=== PATIENT | male | born 1935 | race African-American/Black ===

== ENCOUNTER 2017-03-30 11:25 | Inpatient (IN) | payer MEDICARE, OTHER ==
[~2017-03-30] VITALS: Ht 175.3 cm; Wt 95.5 kg
[~2017-03-30 11:25] MED LIST: ALLO100T PO; AMLO10TA4 PO; AMOXICILLIN PO; ASPI-1159 PO; CARV12.545 PO; CLOP75TA2 PO; HYDR-4005 PO; INSU10VI5 SQ; LOSA100T14 PO; SITA50TA3 PO; TRIA1CAP6 PO; [UNRECOGNIZED DRUG - OTHER] PO
[2017-03-30] MEDS ORDERED: CRIZ250C PO (11:55)
[2017-03-30 15:12] LABS: BASOPHILS % 0.9 % (0.0-2.0); EOSINOPHILS % 1.7 % (0.0-5.0); HEMOGLOBIN. 11.1 g/dL (14.0-18.0); LYMPHOCYTES % 23.9 % (20.0-50.0); MEAN CORPUSCULAR HEMOGLOBIN 23.7 pg (28.0-32.0); MEAN CORPUSCULAR VOLUME 74.9 fL (80.0-94.0); MEAN PLATELET VOLUME 9.3 fl (7.4-10.4); MONOCYTES % 8.2 % (2.0-8.0); NEUTROPHILS % 65.3 % (40.0-76.0); PLATELET 230 x1000/uL (130-400); RED BLOOD CELL COUNT 4.67 mill/uL (4.7-6.1)
[2017-03-30 15:14] LABS: BG BASE EXCESS -2.8 mmol/L (-2.0-2.0); BG CARBOXYHEMOGLOBIN 0.8 % (0.5-1.5); BG DEOXYHEMOGLOBIN 5.7 % (0.0-5.0); BG HCO3 ACT 21.8 mmol/L (22.0-26.0); BG METHEMOGLOBIN 0.2 % (0.0-1.5); BG OXYGEN SATURATION 94.2 % (92.0-98.5); BG OXYHEMOGLOBIN 93.3 % (94.0-97.0); BG PCO2 37.1 mmHg (35.0-45.0); BG PH 7.386 (7.350-7.450); BG PO2 71.4 mmHg (75.0-100.0); BG SAMPLE SITE RIGHT RADIAL; BG TOTAL HEMOGLOBIN 12.4 g/dL (12.0-18.0); BG VENT MODE ROOM AIR
[2017-03-30 15:20] LABS: INR 1.1
[2017-03-30 15:23] LABS: AMMONIA 23 uMol/L (<32)
[2017-03-30 15:24] LABS: CARBON DIOXIDE 27 mEq/L (21-32); CHLORIDE 104 mEq/L (98-107); ETHANOL BLOOD < 10 mg/dL
[2017-03-30 15:30] LABS: TROPONIN I < 0.02 ng/mL (0.00-0.04)
[2017-03-30 15:39] LABS: GLUCOSE URINE NEGATIVE (NEGATIVE); KETONES URINE NEGATIVE (NEGATIVE); LEUKOCYTE ESTERASE URINE NEGATIVE (NEGATIVE); NITRITE URINE NEGATIVE (NEGATIVE); OCCULT BLOOD URINE NEGATIVE (NEGATIVE); PH URINE 5.5 (4.5-8.0); PROTEIN URINE 1+ (NEGATIVE); SPECIFIC GRAVITY URINE 1.007 (1.005-1.030)
[2017-03-30 15:44] LABS: CLARITY URINE CLEAR (CLEAR); COLOR URINE YELLOW (YELLOW)
[2017-03-30 16:04] LABS: *AMPHETAMINES SCREEN URINE NEGATIVE (NEGATIVE); *BARBITURATES SCREEN URINE NEGATIVE (NEGATIVE); *BENZODIAZEPINES SCREEN URINE NEGATIVE (NEGATIVE); *COCAINE SCREEN URINE NEGATIVE (NEGATIVE); CANNABINOID URINE SCREEN NEGATIVE (NEGATIVE); METHADONE URINE SCREEN NEGATIVE (NEGATIVE); OPIATES URINE SCREEN NEGATIVE (NEGATIVE); PHENCYCLIDINE URINE SCREEN NEGATIVE (NEGATIVE)
[2017-03-30] MEDS ORDERED: CEFTRIAXONE 1 G PREMIX 50 ML IV ONE (16:45)
[2017-03-30] MEDS ORDERED: AZITHROMYCIN 500 MG in DEXT 5% WATER 250 ML IV SCH (16:45)
[2017-03-30] MEDS ORDERED: AMLODIPINE 5MG TABLET PO NR (19:15)
[2017-03-30 20:02] VITALS: BP 187/70
[2017-03-30] MEDS ORDERED: INSU3INS6 SUBCUT (20:44)
[2017-03-30] MEDS ORDERED: LACTULOSE 20G/30ML UDC PO PRN (21:00)
[2017-03-30] MEDS ORDERED: CEFTRIAXONE SODIUM 1 G/VIAL IM ONE (21:00)
[2017-03-30] MEDS ORDERED: ZOLPIDEM TARTRATE 5MG TABLET PO PRN (21:00)
[2017-03-30] MEDS ORDERED: DEXTROSE 50% WATER 50ML SYRINGE IV PRN (21:00)
[2017-03-30] MEDS ORDERED: ACETAMINOPHEN 325MG TABLET PO PRN (21:00)
[2017-03-30] MEDS ORDERED: [UNRECOGNIZED DRUG - OTHER] PO (21:25)
[2017-03-30] MEDS ORDERED: HYDROCODONE/APAP 7.5/325MG 1 TAB TABLET PO PRN (21:30)
[2017-03-30] MEDS: BLOOD SUGAR DIAGNOSTIC STRIP TEST SCH (22:15)
[2017-03-30] MEDS: INSULIN LISPRO 100 UNITS/ML SUBCUT SCH (22:15)
[2017-03-30] MEDS: ALLOPURINOL 100 MG TABLET PO SCH (22:30)
[2017-03-30] MEDS: CARVEDILOL 12.5MG TABLET PO SCH (22:30)
[2017-03-30] MEDS: CLOPIDOGREL 75MG TABLET PO SCH (22:30)
[2017-03-30] MEDS: AMLODIPINE 10MG TABLET PO SCH (22:30)
[2017-03-31] VITALS: BP_SYST 127; BP_SYST 133; BP_DIAS 62; BP_DIAS 68
[2017-03-31 04:00] VITALS: BP 133/68
[2017-03-31] MEDS: INSULIN LISPRO 100 UNITS/ML SUBCUT SCH ×3 (06:41→20:23)
[2017-03-31] MEDS: BLOOD SUGAR DIAGNOSTIC STRIP TEST SCH ×3 (06:41→20:22)
[2017-03-31 06:53] LABS: HEMOGLOBIN 10.6 g/dL (14.0-18.0); MEAN CORPUSCULAR HEMOGLOBIN 23.5 pg (28.0-32.0); MEAN CORPUSCULAR VOLUME 75.1 fL (80.0-94.0); PLATELET 238 x1000/uL (130-400); RED BLOOD CELL COUNT 4.52 mill/uL (4.7-6.1)
[2017-03-31 08:00] VITALS: BP 147/54
[2017-03-31 08:18] LABS: CARBON DIOXIDE 29 mEq/L (21-32); CHLORIDE 105 mEq/L (98-107); HDL CHOLESTEROL 22 mg/dL (40-59); LDL CHOLESTEROL 65 mg/dL (5-100)
[2017-03-31] MEDS: CARVEDILOL 12.5MG TABLET PO SCH ×2 (09:00→20:23)
[2017-03-31] MEDS ORDERED: TRIAMTERENE/HYDROCHLOROTHIAZIDE 37.5/25MG CAPSULE PO SCH (09:00)
[2017-03-31] MEDS: AMLODIPINE 10MG TABLET PO SCH (10:29)
[2017-03-31] MEDS: CLOPIDOGREL 75MG TABLET PO SCH (10:29)
[2017-03-31] MEDS: ASPIRIN 81MG EC TABLET PO SCH (10:29)
[2017-03-31] MEDS: XALKORI 250 MG PO SCH ×2 (10:29→17:11)
[2017-03-31] MEDS: ALLOPURINOL 100 MG TABLET PO SCH (10:29)
[2017-03-31] MEDS: CEFTRIAXONE 1 G PREMIX 50 ML IV SCH (10:45)
[2017-03-31 12:00] VITALS: BP 163/47
[2017-03-31] MEDS: LOSARTAN POTASSIUM 100 MG TABLET PO SCH (14:13)
[2017-03-31 16:00] VITALS: BP 161/44
[2017-03-31 20:00] VITALS: BP 139/65
[2017-04-01] VITALS: BP 137/62
[2017-04-01 04:00] VITALS: BP 150/79
[2017-04-01] MEDS: BLOOD SUGAR DIAGNOSTIC STRIP TEST SCH ×4 (06:34→20:26)
[2017-04-01] MEDS: INSULIN LISPRO 100 UNITS/ML SUBCUT SCH ×4 (07:50→20:27)
[2017-04-01 08:00] VITALS: BP 158/50
[2017-04-01] MEDS: CLOPIDOGREL 75MG TABLET PO SCH (08:28)
[2017-04-01] MEDS: XALKORI 250 MG PO SCH ×2 (08:28→18:04)
[2017-04-01] MEDS: ALLOPURINOL 100 MG TABLET PO SCH (08:29)
[2017-04-01] MEDS: AMLODIPINE 10MG TABLET PO SCH (08:29)
[2017-04-01] MEDS: LOSARTAN POTASSIUM 100 MG TABLET PO SCH (08:29)
[2017-04-01] MEDS: CARVEDILOL 12.5MG TABLET PO SCH ×2 (08:29→20:26)
[2017-04-01] MEDS: ASPIRIN 81MG EC TABLET PO SCH (08:32)
[2017-04-01] MEDS: ENOXAPARIN 30MG/0.3ML SYR SUBCUT SCH (08:32)
[2017-04-01] MEDS: CEFTRIAXONE 1 G PREMIX 50 ML IV SCH (09:24)
[2017-04-01 12:10] VITALS: BP 162/48
[2017-04-01] MEDS: TRIAMTERENE/HYDROCHLOROTHIAZIDE 37.5/25MG CAPSULE PO SCH (12:31)
[2017-04-01 16:00] VITALS: BP 165/54
[2017-04-01 20:00] VITALS: BP 151/63
[2017-04-02] VITALS (7 sets, daily range): BP systolic 132–181; BP diastolic 50–64
[2017-04-02] MEDS: BLOOD SUGAR DIAGNOSTIC STRIP TEST SCH ×4 (06:40→20:50)
[2017-04-02 06:58] LABS: BASOPHILS % 1.1 % (0.0-2.0); EOSINOPHILS % 2.1 % (0.0-5.0); HEMOGLOBIN. 11.5 g/dL (14.0-18.0); LYMPHOCYTES % 30.5 % (20.0-50.0); MEAN CORPUSCULAR HEMOGLOBIN 23.4 pg (28.0-32.0); MEAN PLATELET VOLUME 10.1 fl (7.4-10.4); MONOCYTES % 10.1 % (2.0-8.0); NEUTROPHILS % 56.2 % (40.0-76.0); PLATELET 235 x1000/uL (130-400); RED BLOOD CELL COUNT 4.93 mill/uL (4.7-6.1); RED CELL DISTRIBUTION WIDTH 14.8 % (11.6-14.6)
[2017-04-02] MEDS: INSULIN LISPRO 100 UNITS/ML SUBCUT SCH ×4 (07:50→20:50)
[2017-04-02] MEDS: CARVEDILOL 12.5MG TABLET PO SCH ×2 (09:00→20:48)
[2017-04-02] MEDS: ENOXAPARIN 30MG/0.3ML SYR SUBCUT SCH (09:56)
[2017-04-02] MEDS: ALLOPURINOL 100 MG TABLET PO SCH (09:56)
[2017-04-02] MEDS: LOSARTAN POTASSIUM 100 MG TABLET PO SCH (09:57)
[2017-04-02] MEDS: CLOPIDOGREL 75MG TABLET PO SCH (09:57)
[2017-04-02] MEDS: TRIAMTERENE/HYDROCHLOROTHIAZIDE 37.5/25MG CAPSULE PO SCH (09:57)
[2017-04-02] MEDS: ASPIRIN 81MG EC TABLET PO SCH (09:57)
[2017-04-02] MEDS: AMLODIPINE 10MG TABLET PO SCH (09:57)
[2017-04-02] MEDS: XALKORI 250 MG PO SCH ×2 (09:58→18:19)
[2017-04-02] MEDS: CEFTRIAXONE 1 G PREMIX 50 ML IV SCH (12:11)
[2017-04-02 21:17] LABS: T4 FREE 0.88 ng/dL (0.76-1.46)
[2017-04-02 21:43] LABS: FOLIC ACID (FOLATE) SERUM 16.1 ng/mL (>5.38)
[2017-04-03 00:14] VITALS: BP 105/40
[2017-04-03 04:38] VITALS: BP 135/49
[2017-04-03] MEDS: BLOOD SUGAR DIAGNOSTIC STRIP TEST SCH ×3 (06:40→12:09)
[2017-04-03 08:00] VITALS: BP 161/50
[2017-04-03] MEDS: CLOPIDOGREL 75MG TABLET PO SCH (09:19)
[2017-04-03] MEDS: ASPIRIN 81MG EC TABLET PO SCH (09:20)
[2017-04-03] MEDS: TRIAMTERENE/HYDROCHLOROTHIAZIDE 37.5/25MG CAPSULE PO SCH (09:20)
[2017-04-03] MEDS: AMLODIPINE 10MG TABLET PO SCH (09:20)
[2017-04-03] MEDS: ALLOPURINOL 100 MG TABLET PO SCH (09:20)
[2017-04-03] MEDS: LOSARTAN POTASSIUM 100 MG TABLET PO SCH (09:20)
[2017-04-03] MEDS: CARVEDILOL 12.5MG TABLET PO SCH (09:21)
[2017-04-03] MEDS: ENOXAPARIN 30MG/0.3ML SYR SUBCUT SCH (09:22)
[2017-04-03] MEDS: INSULIN LISPRO 100 UNITS/ML SUBCUT SCH ×2 (09:31→13:19)
[2017-04-03] MEDS: XALKORI 250 MG PO SCH (11:36)
[2017-04-03] MEDS: CEFTRIAXONE 1 G PREMIX 50 ML IV SCH (11:36)
[2017-04-03 16:00] VITALS: BP 140/46
[2017-04-03 17:12] VITALS: BP 135/72
[2017-04-03] MEDS ORDERED: HYDROCODONE/APAP 7.5/325MG 1 TAB TABLET PO PRN (17:21)
== END 2017-04-03 17:40 | disposition home or self-care (01) | DRG 69 ==
LOC: ER 13:08 → 6WST 16:57 → EDBEDREQ 16:59 → ENRESERV 18:29
PROVIDERS: ADMIT Specialist; ATTEND Specialist
DX: G45.9 Transient cerebral ischemic attack, unspecified (principal); C34.90 Malignant neoplasm of unspecified part of unspecified bronchus or lung; E44.0 Moderate protein-calorie malnutrition; C78.00 Secondary malignant neoplasm of unspecified lung; I12.9 Hypertensive chronic kidney disease with stage 1 through stage 4 chronic kidney disease, or unspecified chronic kidney disease; M50.30 Other cervical disc degeneration, unspecified cervical region; R00.1 Bradycardia, unspecified; N18.9 Chronic kidney disease, unspecified; C61 Malignant neoplasm of prostate; E11.22 Type 2 diabetes mellitus with diabetic chronic kidney disease; E78.00 Pure hypercholesterolemia, unspecified; E78.5 Hyperlipidemia, unspecified; I13.10 Hypertensive heart and chronic kidney disease without heart failure, with stage 1 through stage 4 chronic kidney disease, or unspecified chronic kidney disease; I25.10 Atherosclerotic heart disease of native coronary artery without angina pectoris; I65.22 Occlusion and stenosis of left carotid artery; M10.9 Gout, unspecified; Z79.4 Long term (current) use of insulin; Z82.49 Family history of ischemic heart disease and other diseases of the circulatory system; Z85.118 Personal history of other malignant neoplasm of bronchus and lung; Z85.46 Personal history of malignant neoplasm of prostate; Z86.73 Personal history of transient ischemic attack (TIA), and cerebral infarction without residual deficits; Z87.891 Personal history of nicotine dependence; Z90.79 Acquired absence of other genital organ(s); Z95.5 Presence of coronary angioplasty implant and graft; Z88.2 Allergy status to sulfonamides; Z88.6 Allergy status to analgesic agent; Z91.041 Radiographic dye allergy status; Z68.31 Body mass index [BMI] 31.0-31.9, adult; Z79.84 Long term (current) use of oral hypoglycemic drugs
CPT/HCPCS: 36415; 36600; 70450; 70544; 70547; 70551; 71010; 71250; 80048; 80053; 80061; 80305; 81001; 82140; 82375; 82607; 82746; 82805; 82962; 83036; 83605; 83880; 84439; 84443; 84481; 84484; 85025; 85027; 85610; 87040; 92610; 93005; 93880; 96365; 96366; 96367; 97110; 97116; 97162; 97166; 99285; G0482; J0456; J0696; J1650; J1815; J7040; J7060

== ENCOUNTER 2017-06-19 16:55 | Inpatient (IN) | payer MEDICARE, OTHER ==
[~2017-06-19] VITALS: Ht 172.7 cm; Wt 79.4 kg
[~2017-06-19 16:55] MED LIST changes: -AMOXICILLIN PO; +CLOP75TA16 PO; -CLOP75TA2 PO; +CRIZ250C PO; -INSU10VI5 SQ; +INSU3INS6 SUBCUT; -SITA50TA3 PO
[2017-06-19 18:40] LABS: BASOPHILS % 1.1 % (0.0-2.0); EOSINOPHILS % 2.5 % (0.0-5.0); HEMATOCRIT. 35.8 % (42.0-52.0); HEMOGLOBIN. 11.5 g/dL (14.0-18.0); LYMPHOCYTES % 30.5 % (20.0-50.0); MEAN CORPUSCULAR HEMOGLOBIN 23.5 pg (28.0-32.0); MEAN CORPUSCULAR VOLUME 73.2 fL (80.0-94.0); MEAN PLATELET VOLUME 10.1 fl (7.4-10.4); NEUTROPHILS % 56.9 % (40.0-76.0); PLATELET 188 x1000/uL (130-400); RED BLOOD CELL COUNT 4.89 mill/uL (4.7-6.1); RED CELL DISTRIBUTION WIDTH 14.2 % (11.6-14.6)
[2017-06-19 18:49] LABS: CHLORIDE 103 mEq/L (98-107)
[2017-06-19 18:50] LABS: INR 1.1; PROTHROMBIN TIME 11.1 sec (9.4-11.6)
[2017-06-19 18:53] LABS: CARBON DIOXIDE 28 mEq/L (21-32)
[2017-06-19 18:58] LABS: TROPONIN I < 0.02 ng/mL (0.00-0.04)
[2017-06-19] MEDS ORDERED: ASPIRIN 325MG EC TABLET PO ONE (19:15)
[2017-06-19 21:25] VITALS: BP 169/54
[2017-06-19] MEDS ORDERED: ERGO2000 PO (22:22)
[2017-06-19 22:37] VITALS: BP 169/54
[2017-06-20] MEDS ORDERED: DEXTROSE 50% WATER 50ML SYRINGE IV PRN
[2017-06-20] MEDS ORDERED: ACETAMINOPHEN 325MG TABLET PO PRN
[2017-06-20 00:27] VITALS: BP 158/53
[2017-06-20] MEDS ORDERED: NON FORMULARY PATIENT HOME MED EA XX SCH (00:45)
[2017-06-20 04:30] VITALS: BP 172/56
[2017-06-20] MEDS ORDERED: PNEUMOCOCCAL 23-VAL P-SAC VAC 0.5 ML IM ONE (06:00)
[2017-06-20] MEDS ORDERED: INFLUENZA VIRUS VACCINE 0.5ML SYR IM ONE (07:00)
[2017-06-20] MEDS: BLOOD SUGAR DIAGNOSTIC STRIP TEST SCH ×4 (07:20→21:21)
[2017-06-20 07:24] LABS: CARBON DIOXIDE 28 mEq/L (21-32); CHLORIDE 106 mEq/L (98-107)
[2017-06-20 07:28] LABS: CREATINE KINASE 113 IU/L (39-308); CREATINE KINASE MB FRACTION 1.2 ng/mL (0.5-3.6); HDL CHOLESTEROL 24 mg/dL (40-59); LDL CHOLESTEROL 62 mg/dL (5-100); TROPONIN I < 0.02 ng/mL (0.00-0.04)
[2017-06-20] MEDS: INSULIN LISPRO 100 UNITS/ML SUBCUT SCH ×4 (08:00→21:24)
[2017-06-20 08:20] VITALS: BP 165/63
[2017-06-20] MEDS: ASPIRIN 81MG EC TABLET PO SCH (09:45)
[2017-06-20] MEDS: TRIAMTERENE/HYDROCHLOROTHIAZIDE 37.5/25MG CAPSULE PO SCH (09:45)
[2017-06-20] MEDS: ALLOPURINOL 100 MG TABLET PO SCH (09:45)
[2017-06-20] MEDS: CLOPIDOGREL 75MG TABLET PO SCH (09:45)
[2017-06-20] MEDS: AMLODIPINE 10MG TABLET PO SCH (09:45)
[2017-06-20] MEDS: CARVEDILOL 12.5MG TABLET PO SCH ×2 (09:46→21:21)
[2017-06-20] MEDS: LOSARTAN POTASSIUM 100 MG TABLET PO SCH (09:46)
[2017-06-20 10:42] LABS: CLARITY URINE CLEAR (CLEAR); COLOR URINE YELLOW (YELLOW); GLUCOSE URINE NEGATIVE (NEGATIVE); KETONES URINE NEGATIVE (NEGATIVE); LEUKOCYTE ESTERASE URINE NEGATIVE (NEGATIVE); NITRITE URINE NEGATIVE (NEGATIVE); OCCULT BLOOD URINE NEGATIVE (NEGATIVE); PH URINE 6.5 (4.5-8.0); PROTEIN URINE 2+ (NEGATIVE); SPECIFIC GRAVITY URINE 1.011 (1.005-1.030); UROBILINOGEN URINE 0.2 E.U./dL (0.2-1.0)
[2017-06-20 12:05] VITALS: BP 156/55
[2017-06-20] MEDS: NITROGLYCERIN OINT 1GM/INCH UDPKT TD SCH ×2 (13:15→21:20)
[2017-06-20] MEDS: SODIUM CHLORIDE 0.45% 1,000 ML IV SCH ×2 (13:26→23:45)
[2017-06-20] MEDS ORDERED: ENOXAPARIN 80MG/0.8ML SYR SUBCUT SCH (14:00)
[2017-06-20 16:39] LABS: CREATINE KINASE 103 IU/L (39-308); CREATINE KINASE MB FRACTION 1.1 ng/mL (0.5-3.6); TROPONIN I < 0.02 ng/mL (0.00-0.04)
[2017-06-20 16:55] VITALS: BP 157/63
[2017-06-20 20:00] VITALS: BP 170/67
[2017-06-20] MEDS: DOCUSATE SODIUM 250MG CAPSULE PO SCH (21:21)
[2017-06-20] MEDS: INSULIN DETEMIR UD 100 UNITS/ML SYR SUBCUT SCH (21:25)
[2017-06-21] VITALS (7 sets, daily range): BP systolic 132–167; BP diastolic 56–70
[2017-06-21] MEDS: NITROGLYCERIN OINT 1GM/INCH UDPKT TD SCH ×3 (05:02→21:25)
[2017-06-21] MEDS: BLOOD SUGAR DIAGNOSTIC STRIP TEST SCH ×4 (06:37→21:25)
[2017-06-21 07:32] LABS: BASOPHILS % 1.8 % (0.0-2.0); EOSINOPHILS % 3.2 % (0.0-5.0); HEMOGLOBIN. 11.5 g/dL (14.0-18.0); LYMPHOCYTES % 29.9 % (20.0-50.0); MEAN CORPUSCULAR HEMOGLOBIN 22.9 pg (28.0-32.0); MEAN CORPUSCULAR VOLUME 73.8 fL (80.0-94.0); MEAN PLATELET VOLUME 9.9 fl (7.4-10.4); MONOCYTES % 10.1 % (2.0-8.0); PLATELET 182 x1000/uL (130-400); RED BLOOD CELL COUNT 5.02 mill/uL (4.7-6.1); RED CELL DISTRIBUTION WIDTH 14.5 % (11.6-14.6)
[2017-06-21] MEDS: INSULIN LISPRO 100 UNITS/ML SUBCUT SCH ×4 (07:50→21:26)
[2017-06-21 08:43] LABS: CARBON DIOXIDE 27 mEq/L (21-32); CHLORIDE 104 mEq/L (98-107); TROPONIN I < 0.02 ng/mL (0.00-0.04)
[2017-06-21] MEDS: TRIAMTERENE/HYDROCHLOROTHIAZIDE 37.5/25MG CAPSULE PO SCH (09:00)
[2017-06-21] MEDS: AMLODIPINE 10MG TABLET PO SCH (09:00)
[2017-06-21] MEDS: CARVEDILOL 12.5MG TABLET PO SCH ×2 (09:00→21:25)
[2017-06-21] MEDS: ALLOPURINOL 100 MG TABLET PO SCH ×2 (09:00→18:23)
[2017-06-21] MEDS: CLOPIDOGREL 75MG TABLET PO SCH ×2 (09:00→18:23)
[2017-06-21] MEDS: LOSARTAN POTASSIUM 100 MG TABLET PO SCH (09:00)
[2017-06-21] MEDS: ASPIRIN 81MG EC TABLET PO SCH (09:00)
[2017-06-21] MEDS: SODIUM CHLORIDE 0.45% 1,000 ML IV SCH ×2 (12:15→23:43)
[2017-06-21] MEDS ORDERED: NITROGLYCERIN 50MCG/ML 10ML VIAL (CATH LAB) IV ONE (12:25)
[2017-06-21] MEDS ORDERED: HEPARIN SODIUM 1,000 UNIT/1ML VIAL IV ONE (12:25)
[2017-06-21] MEDS ORDERED: NICARDIPINE 100MCG/ML 10ML VIAL (CATH LAB) IV ONE (12:25)
[2017-06-21] MEDS: ERGOCALCIFEROL 50000UNITS CAPSULE PO SCH ×2 (12:52→18:23)
[2017-06-21] MEDS ORDERED: DIPHENHYDRAMINE 50MG/ML VIAL ONE (13:47)
[2017-06-21] MEDS ORDERED: HYDROCORTISONE SOD SUCCINATE 250 MG/2 ML VIAL ONE (13:47)
[2017-06-21] MEDS ORDERED: FAMOTIDINE 20MG/2ML VIAL IV ONE (13:47)
[2017-06-21] MEDS ORDERED: IODIXANOL 320MG/ML 100 ML BOTTLE IV ONE (13:58)
[2017-06-21] MEDS ORDERED: LIDOCAINE HCL 1% 20ML VIAL (Pyxis) INJ ONE (13:58)
[2017-06-21] MEDS ORDERED: MIDAZOLAM HCL 2 MG/2 ML VIAL ONE (13:58)
[2017-06-21] MEDS ORDERED: FENTANYL CITRATE/PF 50MCG/ML 2ML VIAL ONE (13:59)
[2017-06-21] MEDS ORDERED: ATROPINE SULFATE 0.1MG/ML 10ML DISP.SYRIN ONE (14:07)
[2017-06-21] MEDS ORDERED: ENALAPRIL 1.25MG/ML VIAL 1ML IV ONE (14:45)
[2017-06-21] MEDS ORDERED: ATROPINE SULFATE 1MG/10ML SYR IV PRN (15:15)
[2017-06-21] MEDS: DOCUSATE SODIUM 250MG CAPSULE PO SCH (21:25)
[2017-06-21] MEDS: INSULIN DETEMIR UD 100 UNITS/ML SYR SUBCUT SCH (21:27)
[2017-06-22] VITALS: BP 133/51
[2017-06-22 04:00] VITALS: BP 139/54
[2017-06-22] MEDS: NITROGLYCERIN OINT 1GM/INCH UDPKT TD SCH ×2 (05:04→12:00)
[2017-06-22 07:30] LABS: BASOPHILS % 0.5 % (0.0-2.0); EOSINOPHILS % 0.5 % (0.0-5.0); HEMATOCRIT. 34.8 % (42.0-52.0); HEMOGLOBIN. 10.8 g/dL (14.0-18.0); LYMPHOCYTES % 18.3 % (20.0-50.0); MEAN PLATELET VOLUME 9.9 fl (7.4-10.4); MONOCYTES % 9.1 % (2.0-8.0); NEUTROPHILS % 71.6 % (40.0-76.0); PLATELET 191 x1000/uL (130-400); RED BLOOD CELL COUNT 4.71 mill/uL (4.7-6.1); RED CELL DISTRIBUTION WIDTH 14.3 % (11.6-14.6)
[2017-06-22 08:00] VITALS: BP 151/55
[2017-06-22] MEDS: AMLODIPINE 10MG TABLET PO SCH (08:58)
[2017-06-22] MEDS: LOSARTAN POTASSIUM 100 MG TABLET PO SCH (08:58)
[2017-06-22] MEDS: TRIAMTERENE/HYDROCHLOROTHIAZIDE 37.5/25MG CAPSULE PO SCH (08:58)
[2017-06-22] MEDS: ASPIRIN 81MG EC TABLET PO SCH (08:58)
[2017-06-22] MEDS: CARVEDILOL 12.5MG TABLET PO SCH (08:59)
[2017-06-22] MEDS: INSULIN LISPRO 100 UNITS/ML SUBCUT SCH ×2 (09:01→12:34)
[2017-06-22 12:30] VITALS: BP 150/54
== END 2017-06-22 12:35 | disposition home or self-care (01) | DRG 287 ==
LOC: ER 17:28 → 6WST 20:25 → EDBEDREQTM 20:26 → EDBEDREQ 20:26 → ENRESERV 20:50 → CANRESERV 20:50 → ENRESERV 20:53
PROVIDERS: ADMIT Internal Medicine; ATTEND Internal Medicine
PROC: B2111ZZ Fluoroscopy of Multiple Coronary Arteries using Low Osmolar Contrast (ICD-10-PCS; 2017-06-21)
PROC: B2141ZZ Fluoroscopy of Right Heart using Low Osmolar Contrast (ICD-10-PCS; 2017-06-21)
PROC: 4A023N7 Measurement of Cardiac Sampling and Pressure, Left Heart, Percutaneous Approach (ICD-10-PCS; principal; 2017-06-21 13:30)
DX: I25.110 Atherosclerotic heart disease of native coronary artery with unstable angina pectoris (principal); C78.00 Secondary malignant neoplasm of unspecified lung; I24.9 Acute ischemic heart disease, unspecified; E11.22 Type 2 diabetes mellitus with diabetic chronic kidney disease; C61 Malignant neoplasm of prostate; J44.9 Chronic obstructive pulmonary disease, unspecified; E78.5 Hyperlipidemia, unspecified; E66.9 Obesity, unspecified; M19.90 Unspecified osteoarthritis, unspecified site; I13.10 Hypertensive heart and chronic kidney disease without heart failure, with stage 1 through stage 4 chronic kidney disease, or unspecified chronic kidney disease; N18.9 Chronic kidney disease, unspecified; I25.2 Old myocardial infarction; Z79.02 Long term (current) use of antithrombotics/antiplatelets; Z79.4 Long term (current) use of insulin; Z79.82 Long term (current) use of aspirin; Z79.899 Other long term (current) drug therapy; Z87.891 Personal history of nicotine dependence; Z95.5 Presence of coronary angioplasty implant and graft; Z88.5 Allergy status to narcotic agent; Z88.2 Allergy status to sulfonamides; Z88.8 Allergy status to other drugs, medicaments and biological substances; Z88.6 Allergy status to analgesic agent; Z91.041 Radiographic dye allergy status
CPT/HCPCS: 36415; 71010; 80048; 80053; 80061; 81001; 82550; 82553; 82962; 83036; 83880; 84484; 85025; 85610; 87077; 87086; 87186; 90686; 90732; 93005; 93306; 93458; 93970; 97162; 99285; C1769; C1887; C1893; J0461; J1200; J1644; J1650; J1720; J1815; J2250; J3010; J3490; Q9967

== ENCOUNTER 2017-11-20 14:44 | Emergency (ER) | payer MEDICARE, OTHER ==
[~2017-11-20] VITALS: Ht 172.7 cm; Wt 98.0 kg
[~2017-11-20 14:44] MED LIST changes: +ERGO2000 PO
[2017-11-20 14:55] VITALS: BP 114/78
[2017-11-20 19:13] LABS: HEMATOCRIT. 34.6 % (42.0-52.0); HEMOGLOBIN. 10.6 g/dL (14.0-18.0); MEAN CORPUSCULAR VOLUME 71.7 fL (80.0-94.0); MEAN PLATELET VOLUME 9.2 fl (7.4-10.4); PLATELET 321 x1000/uL (130-400); RED BLOOD CELL COUNT 4.82 mill/uL (4.7-6.1); RED CELL DISTRIBUTION WIDTH 13.6 % (11.6-14.6)
[2017-11-20 19:20] LABS: INR 1.2; PROTHROMBIN TIME 12.5 sec (9.4-11.6)
[2017-11-20 19:23] LABS: CHLORIDE 104 mEq/L (98-107)
[2017-11-20 20:15] LABS: PLATELET ESTIMATE NORMAL
== END 2017-11-20 19:50 | disposition left against medical advice (07) ==
LOC: ER 15:24
DX: I44.0 Atrioventricular block, first degree (principal); R53.1 Weakness; J18.9 Pneumonia, unspecified organism; I12.9 Hypertensive chronic kidney disease with stage 1 through stage 4 chronic kidney disease, or unspecified chronic kidney disease; N18.9 Chronic kidney disease, unspecified; F03.90 Unspecified dementia, unspecified severity, without behavioral disturbance, psychotic disturbance, mood disturbance, and anxiety; E11.22 Type 2 diabetes mellitus with diabetic chronic kidney disease; Z79.4 Long term (current) use of insulin; Z88.2 Allergy status to sulfonamides; Z88.5 Allergy status to narcotic agent; Z79.82 Long term (current) use of aspirin; Z98.62 Peripheral vascular angioplasty status; Z85.118 Personal history of other malignant neoplasm of bronchus and lung
CPT/HCPCS: 36415; 71045; 80053; 83880; 84484; 85025; 85610; 93005; 99285